=== PATIENT | female | born 1935 | race Two or more races ===

== ENCOUNTER 2019-05-02 06:52 | Day surgery (SDC) | payer OTHER | END 2019-05-02 11:15 | disposition home or self-care (01) | LOC: AMB-ENDOS 06:52 | DX: D12.2 Benign neoplasm of ascending colon (principal); D12.5 Benign neoplasm of sigmoid colon; D12.8 Benign neoplasm of rectum; K57.30 Diverticulosis of large intestine without perforation or abscess without bleeding ==

== ENCOUNTER 2019-05-18 10:21 | Outpatient (CLI) | payer OTHER | END 2019-05-18 10:33 | disposition home or self-care (01) | LOC: LAB 10:21 | DX: K92.1 Melena (principal); D12.2 Benign neoplasm of ascending colon; D37.5 Neoplasm of uncertain behavior of rectum; D12.6 Benign neoplasm of colon, unspecified; I10 Essential (primary) hypertension ==

== ENCOUNTER 2019-05-20 09:54 | Inpatient (IN) | payer OTHER ==
[~2019-05-20] VITALS: Ht 152.4 cm; Wt 79.4 kg
[2019-05-20] MEDS ORDERED: METOPROLOL SUCC25 MG PO (16:09)
[2019-05-20] MEDS ORDERED: SIMVASTATIN5 MG PO (16:09)
[2019-05-20] MEDS ORDERED: GLIMEPIRIDE2 MG PO (16:09)
== END 2019-06-07 11:53 | disposition home or self-care (01) | DRG 332 ==
LOC: O/R 05-24 05:25 → ICU 05-24 05:25 → SURH 05-24 05:25 → O/R 05-24 08:15 → SURG 05-24 10:01 → O/R 05-24 10:51 → ICU 05-24 11:08 → SURH 05-31 18:04
PROVIDERS: ADMIT Surgery
PROC: B246ZZZ Ultrasonography of Right and Left Heart (ICD-10-PCS; 2019-05-24)
PROC: 3E0F7GC Introduction of Other Therapeutic Substance into Respiratory Tract, Via Natural or Artificial Opening (ICD-10-PCS; 2019-05-24)
PROC: 0DBP4ZZ Excision of Rectum, Percutaneous Endoscopic Approach (ICD-10-PCS; principal; 2019-05-24 08:15)
PROC: 4A033R1 Measurement of Arterial Saturation, Peripheral, Percutaneous Approach (ICD-10-PCS; 2019-05-25)
PROC: 05HB33Z Insertion of Infusion Device into Right Basilic Vein, Percutaneous Approach (ICD-10-PCS; 2019-05-27)
PROC: 4A12X4Z Monitoring of Cardiac Electrical Activity, External Approach (ICD-10-PCS; 2019-06-01)
PROC: BB24Y0Z Computerized Tomography (CT Scan) of Bilateral Lungs using Other Contrast, Unenhanced and Enhanced (ICD-10-PCS; 2019-06-03)
PROC: 0BH17EZ Insertion of Endotracheal Airway into Trachea, Via Natural or Artificial Opening (ICD-10-PCS; 2019-06-04)
PROC: 5A1935Z Respiratory Ventilation, Less than 24 Consecutive Hours (ICD-10-PCS; 2019-06-04)
DX: C20 Malignant neoplasm of rectum (principal); J95.822 Acute and chronic postprocedural respiratory failure; J81.1 Chronic pulmonary edema; E87.2 Acidosis; G72.81 Critical illness myopathy; I10 Essential (primary) hypertension; E11.9 Type 2 diabetes mellitus without complications; E83.42 Hypomagnesemia